=== PATIENT | male | born 1955 ===

== ENCOUNTER → 2022-02-08 11:39 | Outpatient (CLI) | payer MEDICARE, BC, SELFPAY ==
--- NOTE | 2022-02-08 | DI.US_ITS ---
Exam(s) US LOWER EXTREMITY VENOUS RT EXAM: US LOWER EXTREMITY VENOUS RT CLINICAL HISTORY: LEG EDEMA R60.0. TECHNIQUE: Lower extremity venous ultrasound performed using grayscale, color-flow, and spectral Do ppler analysis. COMPARISON: No exams were available for comparison FINDINGS: The common femoral, femoral and popliteal veins demonstrate normal compressibility, augmentation, and color Doppler. The posterior tibial veins are patent. No saphenous vein thrombosis or other superfi cial venous thrombosis is seen. No Araya's cyst is seen. In the area of the patient's pain, at prox imal posterior calf there is a 4.2 x 2.3 x 3.5 centimeter avascular ovoid collection, consistent with a hematoma. IMPRESSION: Calf hematoma. No evidence of DVT. DATA REPOSITORY:
== END ==
PROVIDERS: Visit Provider Family Medicine
DX: R60.0 Localized edema (principal); S80.11XA Contusion of right lower leg, initial encounter
CPT/HCPCS: 93971